=== PATIENT | female | born 1945 | race Caucasian/White ===

== ENCOUNTER 2020-05-07 09:45 | Outpatient (CLI) | payer MEDICARE, OTHER, SELFPAY ==
--- NOTE | 2020-05-07 09:59 | MM_ITS ---
WS: [id number] Bilateral diagnostic digital mammogram, 05/07/2020 Clinical Data: hx of breast ca Comparison: 02/07/2019, 01/18/2018, 01/17/2018, 12/23/2017. Findings: The right breast shows fat replacement. There are no right breast spiculated masses or spiculated broderick cifications. The left breast shows postoperative changes with skin thickening and heterogeneous tissu e in the upper outer quadrant of the left breast. There are also surgical clips adjacent to the posto perative thickening in the upper outer quadrant.. No evidence of recurrent left breast cancer is seen . MM/[id number] Impression: 1. Negative right breast unchanged. 2. Postoperative changes in the upper outer quadrant of the left breast which r emain the same. BIRADS: 2-Benign FOLLOW UP: 1 Year Follow-up The CAD amusement or recreation card checker was used.
== END 2020-05-07 09:46 | disposition home or self-care (01) ==
LOC: RADSHAW 09:54
PROVIDERS: PCP Physician Assistant; Visit Provider Physician Assistant
DX: Z85.3 Personal history of malignant neoplasm of breast (principal)
CPT/HCPCS: 77066

== ENCOUNTER 2021-06-17 08:14 | Outpatient (CLI) | payer MEDICARE, OTHER, SELFPAY ==
--- NOTE | 2021-06-17 08:20 | MM_ITS ---
WS: [id number] Bilateral diagnostic digital mammogram, 06/17/2021 Clinical Data: HX OF BREAST CA Comparison: 05/15/2020, 05/07/2020, 02/11/2019, 01/18/2018, 01/17/2018, 12/23/2017. Findings: The right breast shows fat replacement. There are no right breast spiculated masses or calcifications . The left breast shows postoperative changes with skin thickening and heterogeneous tissue in the up per outer quadrant. There are surgical clips adjacent to the postoperative thickening. No evidence of recurrent left breast cancer is seen. MM/[id number] Impression: 1. Negative right breast unchanged. 2. Postoperative changes in the upper outer quadrant of the left breast unchang ed. BIRADS: 2-Benign FOLLOW UP: 1 Year Follow-up The CAD job checker was used.
== END 2021-06-17 08:15 | disposition home or self-care (01) ==
LOC: RADSHAW 08:19
PROVIDERS: PCP Physician Assistant; Visit Provider Physician Assistant
DX: Z85.3 Personal history of malignant neoplasm of breast (principal)
CPT/HCPCS: 77066

== ENCOUNTER 2022-07-16 15:04 | Outpatient (CLI) | payer MEDICARE, OTHER, SELFPAY ==
--- NOTE | 2022-07-16 15:25 | MM_ITS ---
WS: [id number] DIAGNOSTIC BILATERAL DIGITAL BREAST TOMOSYNTHESIS MAMMOGRAPHY WITH CAD HISTORY: Z85.3/ HX OF BREAST CA COMPARISON: 06/17/2021 and 05/07/2020 TECHNIQUE: Bilateral craniocaudad, mediolateral oblique, and mediolateral views are submitted with to mosynthesis and SM. Computer aided detection utilized. Breast composition: There are scattered areas of fibroglandular density. Postsurgical changes upper o uter quadrant of the LEFT breast. Postoperative cavity with clips. Trabecular and skin thickening on the LEFT breast is stable. No new mass. MM/[id number] IMPRESSION: BI-RADS: 2-Benign FOLLOW UP: 1 Year Follow-up
== END 2022-07-16 15:05 | disposition home or self-care (01) ==
LOC: RAD 15:06
PROVIDERS: PCP Physician Assistant; Visit Provider Physician Assistant
DX: Z85.3 Personal history of malignant neoplasm of breast (principal)
CPT/HCPCS: 77062; 77063; 77067; G0279

== ENCOUNTER → 2022-09-03 15:36 | Outpatient (BNVA) | payer MEDICARE, OTHER, SELFPAY | PROVIDERS: PCP Physician Assistant; Visit Provider Obstetrics & Gynecology | DX: N95.0 Postmenopausal bleeding (principal); N84.1 Polyp of cervix uteri | CPT/HCPCS: 76830 ==

== ENCOUNTER 2022-10-06 06:31 | Day surgery (SDC) | payer MEDICARE, OTHER, SELFPAY ==
[2022-10-04 10:59] VITALS: BMI 36.6
[2022-10-04 11:03] LABS: Basophils # 0.1 10^3/uL (0.0-0.1); Basophils % 0.7 %; Eosinophils # 0.2 10^3/uL (0.0-0.8); Eosinophils % 1.8 %; Hematocrit 42.8 % (37.0-47.0); Hemoglobin 14.1 g/dL (11.5-15.3); Lymphocytes # 1.6 10^3/uL (0.8-4.8); Lymphocytes % 18.1 %; Mean Corpuscular HGB Conc 32.9 g/dL (30.0-36.0); Mean Corpuscular Hemoglobin 31.1 pg (28.0-34.0); Mean Corpuscular Volume 94.3 fl (81-99); Mean Platelet Volume 9.6 fL (7.4-10.4); Monocytes # 0.6 10^3/uL (0.2-0.9); Monocytes % 6.7 %; Neutrophils # 6.34 10^3/uL (1.8-7.7); Neutrophils % 72.4 %; Nucleated Red Blood Cells % 0 %; Platelet Count 247 10^3/cmm (130-400); Red Blood Count 4.54 10^6/uL (4.1-5.3); Red Cell Distribution Width 13.1 % (12.1-15.1); White Blood Count 8.8 10^3/uL (4.0-10.0)
--- NOTE | 2022-10-04 11:19 | ANES.PREANE2 ---
Pre-Anesthetic Assessment Height/Weight: Height 1.63 m Weight 96.615 kg Preop Diagnosis: Postmenopausal bleeding Operation Date: 10/06/22 08:20 Proposed Procedures p Hysteroscopy, dilation and curettage with Myosure 80934, [id number] N84.0(Not Applicable) - Alan Duron MD s Dilation And Curettage (D&C)(Not Applicable) - Alan Duron MD Familial anesthetic complications: none Social No alcohol and No tobacco Exam alert, oriented x 3, clear to auscultation bilaterally and regular rate & rhythm Airway Mallampati: Class II Dentition: full CV/HEM Hypertension Metabolic Diabetes Mellitus and Morbid Obesity Anesthetic Plan ASA status: 3 Anesthesia: General Risk of > 500 ml blood loss (7ml/kg in children): No Medications/Allergies Home Medications Medication Instructions Recorded Confirmed Last Taken Type calcium carbonate 600 mg calcium 600 mg PO BID 03/08/22 10/04/22 10/04/22 History (1,500 mg) tablet (Calcium) lisinopril 10 mg tablet 10 mg PO DAILY 03/08/22 10/04/22 10/04/22 History metformin 500 mg tablet 500 mg PO BID 03/08/22 10/04/22 10/04/22 History metoprolol tartrate 50 mg tablet 50 mg PO BID 03/08/22 10/04/22 10/04/22 History blood sugar diagnostic (Contour #10 ea 04/22/22 10/04/22 10/04/22 History Next Test Strips) Allergies Allergy/AdvReac Type Severity Reaction Status Date / Time No Known Allergies Allergy Verified 10/04/22 08:16 [facility] Anesthesia Medical History (Updated 09/12/22 @ 18:11 by Alan Duron MD) History of breast cancer History of nonmelanoma skin cancer Hypertension Family History (Updated 08/24/22 @ 14:22 by Lyndsey Askew RN) Sister Heart disease Breast cancer early 70's Mother Heart disease Diabetes Breast cancer late 70's Denies family history of Colon cancer Ovarian cancer Clotting disorder Hyperlipidemia Anesthesia complication Bleeding disorder Hypertension Uterine cancer Thyroid condition Stroke Data Anesthesia 10/04/22 10:35 10/04/22 10:35 Short CBC 10/04/22 Range/Units 10:35 WBC 8.8 (4.0-10.0) 10^3/uL Hgb 14.1 (11.5-15.3) g/dL Hct 42.8 (37.0-47.0) % MCV 94.3 (81-99) fl Plt Count 247 (130-400) 10^3/cmm Neut % (Auto) 72.4 % Neut # (Auto) 6.34 (1.8-7.7) 10^3/uL Cardiac Studies: No Data to Display
[2022-10-04 11:21] LABS: Add Urine Culture? No; Add Urine Microscopic? YES; Bacteria Urine 1+ /hpf; Bilirubin Urine Neg (Negative); Blood Urine Neg (Negative); Glucose Urine UA Norm (Normal); Ketones Urine Negative (Negative); Leukocyte Esterase Urine 1+ (Negative); Nitrate Urine Negative (Negative); Protein Urine Neg (Negative); RBC Urine RARE /hpf (0-2); Urine Appearance Hazy (CLEAR); Urine Color Yellow (Yellow); Urobilinogen Urine Neg (Negative); pH Urine 5 (5-7)
--- NOTE | 2022-10-04 11:25 | ECG_ITS ---
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 Measurements Intervals [place] Rate: 56 P: 11 VT: 142 QRS: 9 QRSD: 90 T: 55 QT: 411 QTc: 397 Interpretive Statements SINUS BRADYCARDIA WITH SINUS ARRHYTHMIA No previous ECG available for comparison Electronically Signed On 10-04-2022 20:37:10 AUTO MACHINIST by Kenan Garcia M.D. [id number]
[2022-10-04 11:29] LABS: Alanine Aminotransferase 12 U/L (0-33); Albumin Level 3.6 g/dL (3.5-5.2); Alkaline Phosphatase 99 U/L (35-105); Anion Gap 15.3 (5-19); Aspartate Amino Transferase 15 U/L (0-32); Blood Urea Nitrogen 15 mg/dL (8-23); Calcium 9.8 mg/dL (8.5-10.5); Carbon Dioxide 24 mmol/L (22-29); Chloride 101 mmol/L (98-107); Globulin 3.5 g/dL (1.3-4.6); Glucose 275 mg/dL (65-115); Osmolality Calculated 293 mOsm/kg (285-295); Potassium 4.3 mmol/L (3.5-5.1); Sodium 136 mmol/L (136-145); Total Bilirubin 0.4 mg/dL (0.15-1.2); Total Protein 7.1 g/dL (6.6-8.7)
[2022-10-06] VITALS (11 sets, daily range): BP systolic 138–219; BP diastolic 67–99; PULSE 60–74; RESP 13–18; TEMP 36.1–36.4; O2SAT 94–100
[2022-10-06 07:01] LABS: Glucose Point of Care 173 mg/dL (70-110)
[2022-10-06] MEDS: scopolamine 1.5 Patch 1 PATCH TRANSDERMA (07:01)
[2022-10-06] MEDS: sodium chloride 0.9% 1,000 ML 30 ML IV (07:02)
--- NOTE | 2022-10-06 07:05 | W.PM.OPSUD ---
Surgery/Procedure H&P Update DATE OF PROCEDURE: October 06, 2022 DATE H&P PERFORMED: 10/04/22 H&P UPDATE INFORMATION: I have reviewed H&P completed within last 30 days, I have examined patient prior to procedure and No changes to prior documentation PREOP DIAGNOSIS: Postmenopausal bleeding PLANNED PROCEDURE: Operation Date: 10/06/22 08:10 Proposed Procedures p Hysteroscopy, dilation and curettage with Myosure 23404, [id number] N84.0(Not Applicable) - Alan Duron MD s Dilation And Curettage (D&C)(Not Applicable) - Alan Duron MD
--- NOTE | 2022-10-06 08:02 | P.ANESUD_ITS ---
Pre-Anesthetic Update Pre-Anesthetic Assessment: Date of Surgery/Procedure: 10/06/22 Preop Sury gnosis: Postmenopausal bleeding Proposed Procedure: Operation Date: 10/06/22 08:10 Proposed Procedures p Hysteroscopy, dilation and curettage with Myosure 17749, [id number] N84.0(Not Applicable) - Alan Duron MD s Dilation And Curettage (D&C)(Not Applicable) - Alan Duron MD Any changes to Pre-Anesthetic Assessment?: No Last Intake: Intake Last Liquid Date 10/05/22 Last Liquid Time 23:00 Last Solid Date 10/05/22 Last Solid Time 19:30 Labs Last 48hrs: Short CBC 10/04/22 Range/Units 10:35 WBC 8.8 (4.0-10.0) 10^3/ uL Hgb 14.1 (11.5-15.3) g/dL Hct 42.8 (37.0-47.0) % MCV 94.3 (81-99) fl Plt Count 247 (130-400) 10^3/c mm Neut % (Auto) 72.4 % Neut # (Auto) 6.34 (1.8-7.7) 10^3/u L BMP 10/04/22 10:35 Sodium 136 Potassium 4.3 Chloride 101 Carbon Dioxide 24 BUN 15 Creatinine 0.8 Glucose 275 H Calcium 9.8 Liver Function 10/04/22 Range/Units 10:35 Total Bilirubin 0.4 (0.15-1.2) mg/dL AST 15 (0-32) U/L ALT 12 (0-33) U/L Alkaline Phosphata se 99 (35-105) U/L Albumin 3.6 (3.5-5.2) g/dL Urine 10/04/22 Range/Units 10:30 Urine Color Yellow (Yellow) Urine Appearance Hazy A (CLEAR) Urine pH 5 (5-7) Ur Specific Gravit y 1.020 (1.005-1.030) Urine Protein Neg (Negative) Urine Glucose (UA) Norm (Normal) Urine Ketones Negative (Negative) Urine Nitrate Negative (Negative) Urine Bilirubin Neg (Negative) Ur Leukocyte Mitra ase 1+ H (Negative) Urine RBC Rare (0-2) /hpf Urine WBC 10-15 H (0-5) /hpf Blood Bank 10/04/22 10:35 Blood Type A Positive Rho(D) Type Positive Antibody Screen Negative Vitals: Temperature 97.2 F L 10/06/22 06:48 Temperature Source Temporal Artery S can 10/06/22 06:48 Pulse Rate 74 10/06/22 06:48 Respiratory Rate 17 10/06/22 06:48 Blood Pressure 184/85 10/06/22 07:05 Blood Pressure Nerissa n 118 10/06/22 07:05 Pulse Oximetry 94 10/06/22 06:48 Oxygen Delivery Me thod 10/06/22 06:48 Exam: Pre-Anes Outpt Exam: alert, oriented x 3, clear to auscultation bilaterally and regular rate & rhythm (Arrhythmia noted) Cardiac Studies: No Data to Display
[2022-10-06] MEDS: ceFAZolin 2,000 MG in sodium chloride 0.9% (plus) 50 ML 100 MG IV (08:35)
--- NOTE | 2022-10-06 09:09 | PM.OP ---
Operative Report Date of procedure: October 06, 2022 Pre-op diagnosis: Preop Diagnosis Postmenopausal bleeding Post-op diagnosis: Postmenopausal bleeding. Multiple endometrial polyp Procedure done: Hysteroscopy with D&C via MyoSure. Hysteroscopic polypectomy Specimens removed/disposition: Endometrial polyps and endometrial curette Surgeon: Alan Duron MD Estimated blood loss (mL): 10 IV fluids (mL): 400 Findings: Multiple endometrial polyp Brief History: Mrs. Trejo 77-year-old female with postmenopausal bleed Procedure: After informed consent, the risks included but were not limited to bleeding, infection, injury to internal organs. The patient was counseled on a possible laparotomy and on the potential need for hysterectomy. The patient expressed understanding of the risks involved, all questions were answered, and the patient consented to the procedure. The patient was taken to the operating room where general anesthesia was administered. She was placed in the dorsal lithotomy position and prepped and draped in sterile fashion. A time out procedure was performed. The patient was examined under anesthesia and found to have a normal uterus with normal adnexa. A sterile weight speculum was placed in the vagina. The uterus was then gently sounded to 8 cm, and the cervix was dilated. The 0 degrees MyoSure hysteroscope was advanced gently to the uterine fundus while visualizing the monitor. Survey of the uterine cavity showed: Multiple polyps from lateral and posterior wall, the fundus shows atrophic endometrium; left ostium was visualized, and lateral wall with proliferative endometrium; right ostium visualized, and lateral wall with proliferative endometrium; anterior and posterior león are with proliferative endometrium; endocervical canal is normal. The MyoSure device was advanced and the direct visualization the polyps were morcellated without complication. At the end of morcellation the fluid deficit was 250 mL and was estimated at approximately 150 mL were on the floor. There was minimal bleeding noted and the tenaculum removed with goad hemostasis noted. The patient tolerated the procedure well. The patient was taken to the recovery area in stable condition.
[2022-10-06 09:38] LABS: Glucose Point of Care 170 mg/dL (70-110)
--- NOTE | 2022-10-06 13:37 | ANE.PACU2 ---
Inpatient post-anesthesia follow up: Airway intact: Yes Vital signs: Temperature 97.5 F Pulse Rate 61 Respiratory Rate 17 Blood Pressure 167/71 Pulse Oximetry 100 Oxygen Delivery Me thod Room Air Oxygen Flow Rate 2 Fraction of Inspir ed Oxygen Hydration adequate: Yes Nausea and vomiting: No Pain level: 1 Mental status: Baseline
== END 2022-10-06 10:18 | disposition home or self-care (01) ==
PROVIDERS: PCP Physician Assistant; Visit Provider Obstetrics & Gynecology
PROC: 0UDB8ZZ Extraction of Endometrium, Via Natural or Artificial Opening Endoscopic (ICD-10-PCS; CPT 58558; principal; 2022-10-06 08:00)
PROC: (CPT 58120; 2022-10-06 08:00)
DX: N95.0 Postmenopausal bleeding (principal); I10 Essential (primary) hypertension; E11.9 Type 2 diabetes mellitus without complications; E66.01 Morbid (severe) obesity due to excess calories; Z68.36 Body mass index [BMI] 36.0-36.9, adult; Z79.84 Long term (current) use of oral hypoglycemic drugs; Z85.3 Personal history of malignant neoplasm of breast
CPT/HCPCS: 58558; 36415; 36416; 80053; 81001; 82962; 85025; 86850; 86900; 88305; 93005; J0690; J1100; J2405; J2704; J3010; J7030